=== PATIENT | male | born 1950 | race Caucasian/White ===

== ENCOUNTER → 2021-07-18 13:18 | Outpatient (CLI) | payer MEDICARE, OTHER, SELFPAY ==
--- NOTE | 2021-07-18 13:19 | DI.RAD.S_ITS ---
PROCEDURE: XR KUB INDICATIONS: Kidney Stones TECHNIQUE: One view of the abdomen acquired. COMPARISON: None. FINDINGS: Surgical changes and devices: None. Bowel: Bowel gas pattern is normal. Soft tissues: No suspicious abdominal calcifications. Visualized solid organ contours appear normal in size. Fiducial markers in the region the prostate gland. Bones: No suspicious bony lesions. Chronic L1 compression fracture. IMPRESSION: 1. No visible urinary calcifications. 2. Prostate gland fiducial markers. 3. Chronic L1 compression fracture. Dictated by: Ruma Mendez M.D. on 07/18/2021 at 15:31 Approved by: Ruma Mendez M.D. on 07/18/2021 at 15:53
== END ==
PROVIDERS: PCP Internal Medicine; Referring Provider Specialist; Visit Provider Specialist
DX: N20.0 Calculus of kidney (principal); M48.56XA Collapsed vertebra, not elsewhere classified, lumbar region, initial encounter for fracture
CPT/HCPCS: 74018

== ENCOUNTER → 2021-12-15 10:28 | Outpatient (CLI) | payer MEDICARE, OTHER, SELFPAY ==
[2021-12-15 10:53] LABS: COVID19 -Nasal RAPID Negative (Negative)
== END ==
PROVIDERS: PCP Internal Medicine; Visit Provider Specialist
DX: Z20.822 Contact with and (suspected) exposure to COVID-19 (principal)
CPT/HCPCS: 87635; C9803

== ENCOUNTER 2021-12-18 06:41 | Day surgery (SDC) | payer MEDICARE, OTHER, SELFPAY ==
[2021-12-13 13:10] VITALS: BMI 25.9
[2021-12-18] VITALS (7 sets, daily range): BP systolic 127–152; BP diastolic 52–76; PULSE 70–85; RESP 11–16; TEMP 36.2–36.6; O2SAT 97–100; BMI 25.9
[2021-12-18] MEDS: ACETAMINOPHEN IV 1,000 MG/100 ML VIAL 400 MG IV (07:27)
[2021-12-18] MEDS: LACTATED RINGERS 1,000 ML 42 ML IV ×2 (07:27→10:11)
[2021-12-18] MEDS: GABAPENTIN 300 MG CAPSULE PO (07:27)
[2021-12-18] MEDS: VANCOMYCIN 1,000 MG/200 ML PIGGYBACK 200 MG IV (07:28)
--- NOTE | 2021-12-18 07:38 | P.OP.PRE_ITS ---
Pre-operative Note COVID-19 Criteria for continued procedure: Increased loss of function, Deterioration of the patient's condition or overall health, Delay expected to result in less- positive ultimate med/surg outcome and Non-surgical alternatives not available or appropriate per current SOC Interval Note History & Physical reviewed/Exam performed by Physician: Yes Changes to H&P: No
[2021-12-18] MEDS: CEFAZOLIN 2 GM/20 ML SYRINGE IV (08:05)
--- NOTE | 2021-12-18 08:56 | SUR.OPER ---
Lithotomy on padded OR bed, head on pillow, arms secured on padded arm boards at <90 degrees abduction. Legs secured in padded yellow fins stirrups.
[2021-12-18] MEDS: GENTAMICIN 240 MG in SODIUM CHLORIDE 0.9% 100 ML 106 ML IV (09:00)
[2021-12-18] MEDS: BUPIVACAINE LIPOSOME 266 MG/20 ML VIAL INJ (09:42)
[2021-12-18] MEDS: VANCOMYCIN 1,000 MG VIAL 1000 MG TOP (09:43)
[2021-12-18] MEDS: BUPIVACAINE 0.5% W/ EPI (PF) 30 ML VIAL INJ (09:43)
[2021-12-18] MEDS: SODIUM CHLORIDE 0.9% 1,000 ML, GENTAMICIN 80 MG IRR (09:44)
--- NOTE | 2021-12-18 11:23 | PM.OP.1 ---
Operative Date/Time/Diagnoses Date of procedure: 12/18/21 Time of procedure: 11:23 Pre-op diagnosis: Stress urinary incontinence Post-op diagnosis: same Procedure & Clinicians Procedure: 1. Placement AMS 800 artificial urinary sphincter (5.0 cm cuff. 61-70 cm reservoir filled with 25 cc.). Same procedure as scheduled: Yes Indications: 1. Stress urinary incontinence Surgeon: John Alves Shoe Lacer: Kerry Chaney Click Yes if Unassisted: No Anesthesia Type: General and Local (1.33% Exparel diluted 50:50. 0.5% Marcaine with epinephrine.) Operative Notes Findings: Dense adhesions in radiation changes encountered at the lateral, right greater than left corpus spongiosum of the bulbar segment. Additionally, there were anterior and posterior to the bulbar urethra and pubic arch. Closure Type: primary Specimen(s): none sent Prosthetic devices, grafts, tissues, transplants, or devices: AMS artificial urinary sphincter, reservoir, and transfer pump. Applied: implant(s) (AMS 800 artificial urinary sphincter-5.0 cm, 61 cm to 70 cm spherical reservoir filled to 25 cc.) Estimated Blood Loss (mL): 10 Blood products transfused: none Procedure in detail: The patient was positioned supine and was administered general anesthesia. The lower abdomen, genitalia, groin, and perineum were then prepped and draped in sterile fashion. A 14 [place] Green catheter was inserted lower urinary tract, the balloon inflated 10 cc, and the contents were drain before clamping the female flange distally for intraoperative urethral localization and manipulation. A solution of 0.5% Marcaine with epinephrine was then instilled the midline perineum between the posterior scrotum and anal verge. The scrotum was elevated anteriorly and stable to the lower abdomen. A midline incision was made sharply to the level of the perineal fat. Blunt and cautery dissection were then used to divide the midline to the perineal body, which was also divided in the midline. A [place] retractor was utilized to assist in visualization and access. The corpus spongiosum was then encountered and carefully cleared of overlying muscular attachments anteriorly and laterally with the findings as described above. Further meticulous and painstaking dissection using cautery, sharp, and blunt technique were then utilized to create a window anterior to the bulbar corpus spongiosum. The window was then extended approximately 2 cm along surface of the spongiosum. The diameter of the segment was then measured and a size 5.0 cm cuff was requested. Next, the skin and subcutaneous tissue over the right lower quadrant at superior margin of the pubic symphysis was then infiltrated local anesthetic. Sharp incision was made and then the subcutaneous Yarelis's fascia was divided with blunt technique down to the level of the rectus fascia at its origin of the pubic symphysis. Muscular wall was then perforated with the tip of a blunt Metzenbaum scissors. Index finger was then insinuated in the space and area was swept free of attachments behind the right pubis in the pelvic extraperitoneal space. The reservoir was then prepared and primed. It was then positioned in the cyst aforementioned space. The fascia was reapproximated with 2-0 Vicryl. The reservoir was then filled with 25 cc of sterile saline. Next the cuff tubing was passed from the perineum to the right inguinal incision using a blunt-tip Passer. The perineal body was then close the midline using a running 2-0 Monocryl the subcutaneous fascial layer was reapproximated using the same suture and technique. Finally the skin was reapproximated with a running subcuticular 4-0 Monocryl. A small strip of Telfa was then tailored to fit over the incision, and a transparent Op site was then applied for a Bioclusive finish. Next, the pump was passed through the wide inguinal incision into the right anterior scrotal space just beneath the skin, and with the control button positioned anteriorly. Now the tubing marked black were connected using a standard right angle connector the usual fashion being sure to avoid introduction of air into the system. In the same manner, the clear/yellow tubing were connected to 1 another he using the same type of connector and technique. A pocket was then extended superiorly over the rectus fascia. The Yarelis's fascia was then reapproximated with running 2-0 Vicryl the subcutaneous layer was reapproximated a running horizontal 3-0 Vicryl. The skin was then reapproximated utilizing a running subcuticular 4-0 Monocryl. A small segment of Telfa was then trimmed appropriately to cover the incision, and a transparent Op site dressing was then applied over this to provide a transparent Bioclusive finish. The Green catheter was then removed. The patient was fitted with absorbent pad and an adult diaper he was then repositioned supine, was transferred to [facility], with then was transported to recovery in stable condition. Complications: none Post-operative Disposition: PACU Plan for aftercare: Discharge home.
[2021-12-18] MEDS: OXYCODONE IR 5 MG TABLET PO (11:34)
--- NOTE | 2021-12-18 11:49 | SUR.PHASEI ---
1144 late entry - awake and comfortable throughout pacu stay, talking, oriented. Tolerated PO intake well.
--- NOTE | 2021-12-18 12:34 | SUR.PHASEII ---
D/C instructions discussed with pt, pt voiced an understanding, pt dressed when ready to go, left unit in stable condition.
== END 2021-12-18 12:34 | disposition home or self-care (01) ==
PROVIDERS: PCP Internal Medicine; Referring Provider Specialist; Visit Provider Specialist
PROC: (CPT 53445; principal; 2021-12-18 07:45)
DX: N39.3 Stress incontinence (female) (male) (principal); Z85.46 Personal history of malignant neoplasm of prostate; I10 Essential (primary) hypertension; K21.9 Gastro-esophageal reflux disease without esophagitis
CPT/HCPCS: 53445; 87086; C1771; C9290; J0131; J0690; J1100; J1170; J2704; J3010

== ENCOUNTER 2021-12-19 01:02 | Emergency (ER) | payer MEDICARE, OTHER, SELFPAY ==
[2021-12-19 01:05] VITALS: BP 151/73; PULSE 98; RESP 18; TEMP 36.6; O2SAT 97; BMI 25.6
--- NOTE | 2021-12-19 01:56 | ED.MALEGU ---
HPI - Male Genitourinary General Chief complaint: Urogenital-Male Stated complaint: CANT URINATE Time Seen by Provider: 12/19/21 01:06 Source: patient Mode of arrival: Ambulatory History of Present Illness HPI Narrative: 71-year-old male former smoker with history of hyperlipidemia and stress incontinence presents with a chief complaint of inability to urinate over the evening. He had a urologic procedure earlier today in which an AMS 800 Urinary Control System was installed (synthetic urinary sphincter) by our urologist. Over the course of the evening his urinary stream slowed then became just dribble and now he is unable to go. He has increasing discomfort in the suprapubic region. He denies fever or chills. He denies nausea, vomiting or diarrhea. Related Data Home Medications Medication Instructions Recorded Confirmed atorvastatin 10 mg tablet (Lipitor) 10 mg PO DAILY 05/31/21 12/18/21 cholecalciferol (vitamin D3) 125 125 mcg PO DAILY 05/31/21 12/18/21 mcg (5,000 unit) capsule omeprazole 20 mg capsule,delayed 20 mg PO DAILY 05/31/21 12/18/21 release Previous Rx's Medication Instructions Recorded ciprofloxacin HCl 250 mg tablet 250 mg PO BID #20 tab 12/06/21 oxycodone 5 mg tablet 5 mg PO Q4H PRN #30 tab 12/06/21 tramadol 50 mg tablet 50 mg PO Q6H PRN #30 tab 12/19/21 Allergies Allergy/AdvReac Type Severity Reaction Status Date / Time Sulfa (Sulfonamide Allergy Unknown Verified 12/06/21 07:48 Antibiotics) Review of Systems Review of Systems Narrative: GENERAL: Denies chills, fatigue, malaise, fever, sweats. HEENT: Denies sinus pain, ear pain, sore throat, difficulty swallowing, dizziness. RESPIRATORY: Denies dyspnea, cough, wheezing, hemoptysis, sputum. CARDIOVASCULAR: Denies chest pain, palpitations, orthopnea, edema, GASTROINTESTINAL: Denies nausea, vomiting, abdominal pain, diarrhea, constipation, melena. : See HPI MUSCULOSKELETAL: denies weakness, joint pain, or bony pain SKIN: Denies rash, skin lesions, or other NEUROLOGIC: Denies weakness, headache, numbness, change in speech, confusion, seizures, incoordination. PSYCHIATRIC: No concerning psychosocial issues. 12 point review of systems is negative except for those stated above Patient History Medical History Angiomyolipoma of right kidney Cancer GERD (gastroesophageal reflux disease) History of malignant neoplasm of prostate Hypertension Melanoma Recurrent prostate cancer Rosacea LIV (stress urinary incontinence), male Urinary incontinence, mixed UTI (urinary tract infection) Surgical History History of cystoscopy History of hernia repair History of prostate biopsy History of prostatectomy (2013) Family History Father Prostate cancer Hyperlipidemia Social History marital status: number of children: 1 household members: spouse Smoking Status: Former smoker alcohol intake: never caffeine: Yes Smoking Status: Former smoker alcohol intake frequency: 0-2 drinks per day Substance Use Type: does not use Exam Narrative Exam Narrative: GENERAL: [71] year old patient appears stated age. Well-developed patient, in mild distress. HEAD: Atraumatic. Normocephalic. EYES: Pupils equal round and reactive. Extraocular motions intact. No scleral icterus. No injection or drainage. ENT: Nose without bleeding, purulent drainage. Throat without erythema, tonsillar hypertrophy or exudate. Airway patent. NECK: Trachea midline. Non tender CARDIOVASCULAR: Regular rate and rhythm without murmurs, gallops, or rubs. RESPIRATORY: Clear to auscultation. Breath sounds equal bilaterally. No wheezes, rales, or rhonchi. GASTROINTESTINAL: Abdomen soft, mild suprapubic tenderness, nondistended. EXTREMITIES: No edema or joint tenderness. BACK: Nontender without deformity or crepitance. No flank tenderness. NEURO: AOx3. SKIN: No rash or erythema of visible areas Initial Vital Signs Initial Vital Signs: Vital Signs Temperature 97.9 F 12/19/21 01:05 Pulse Rate 98 H 12/19/21 01:05 Respiratory Rate 18 12/19/21 01:05 Blood Pressure 151/73 H 12/19/21 01:05 Pulse Oximetry 97 12/19/21 01:05 Course Course Course Narrative: Bedside point of care ultrasound demonstrates full bladder. Call to on-call Urology to discuss next steps, he recommends attempt to deflate the cuff by depressing pump 2-3 times. This has been done on 2 cycles, patient tolerated well but was unable to generate a urine stream. Orders Ordered: Discontinued Medications Lidocaine HCl (Lidocaine 2% (Glydo) 6 Ml Gel) 6 ml TOP NOW ONE Stop: 12/19/21 02:50 Consultations Consultation #1: Dr. Alves called regarding patient's presentation. After discussion he elected to come see the patient and perform a bedside procedure. Please see his note for details of procedure as well as discharge instructions and follow-up instructions Vital Signs Vital signs: Vital Signs - 8 hr 12/19/21 01:05 Temperature 97.9 F Pulse Rate 98 H Respiratory Rate 18 Blood Pressure 151/73 H Pulse Oximetry 97 MDM - Male Genitourinary Lab Data Labs: Lab Results 12/19/21 Range/Units 03:35 Urine Color Yellow Urine Appearance Clear Urine pH 6.0 (4.5-8.0) Ur Specific [place] <=1.005 (1.000-1.035) Urine Protein Negative (Negative) Urine Glucose (UA) Negative (Negative) g/dL Urine Ketones Negative (NEGATIVE) Urine Occult Blood Trace-intact (Negative) Urine Nitrate Negative (Negative) Urine Bilirubin Negative (NEGATIVE) Urine Urobilinogen 0.2 (0.2) E.U./dL Ur Leukocyte Esterase Negative (NEGATIVE) Urine RBC 0-1/hpf (0-5/HPF) Urine WBC None seen (0-5/HPF) Ur Squamous Epith Cells 0-1 /hpf (0-5/HPF) Urine Bacteria None seen (None) Ur Culture Indicated? Cult not indicated Discharge Plan Departure Patient Disposition: Home Clinical Impression: Acute urinary retention Instructions: DI for Urinary Retention in Men Activity Restrictions/Additional Instructions: *You have been diagnosed with [urinary retention status post urological procedure *What to do: *Please continue to take your regular medications as directed. [ ] New medication prescriptions sent to your pharmacy: [ ] [ ] New medication written as a paper prescription [x ] No new medications given *Please follow up with your urologist per the instructions given to you by him *Return to Emergency Department if you should have any new, worsening or concerning symptoms, such as [fever greater than 101 F, shaking chills, worsening pain, persistent vomiting or other bothersome symptoms] Prescriptions: No Action tramadol 50 mg tablet 50 mg PO Q6H PRN (Reason: pain) Qty: 30 0RF Rx Instructions: Take 1 tablet with 1-2 Tylenol every 6 hours as needed for pain. ciprofloxacin HCl 250 mg tablet 250 mg PO BID Qty: 20 0RF oxycodone 5 mg tablet 5 mg PO Q4H PRN (Reason: pain) Qty: 30 0RF atorvastatin [Lipitor] 10 mg tablet 10 mg PO DAILY 0RF omeprazole 20 mg capsule,delayed release(DR/EC) 20 mg PO DAILY 0RF cholecalciferol (vitamin D3) 125 mcg (5,000 unit) capsule 125 mcg PO DAILY 0RF Referrals: Sugey Dewitt MD [Primary Care Provider] - John Alves MD [Physician] -
--- NOTE | 2021-12-19 03:00 | PC.NURSE ---
Urology here and in to evaluate pt, drainage tube placed in bladder and bladder was drained per urology of 1050 ml, pt tolerated procedure well,
[2021-12-19 03:53] LABS: Appearance Urine UA CLEAR; Bilirubin Urine UA NEGATIVE (NEGATIVE); Color Urine UA YELLOW; Glucose Urine UA NEGATIVE (Negative); Ketones Urine UA NEGATIVE (NEGATIVE); Leukocyte Esterase Urine UA NEGATIVE (NEGATIVE); Nitrite Urine UA NEGATIVE (Negative); Occult Blood Urine UA TRACE-INTACT (Negative); Protein Urine UA NEGATIVE (Negative); Specific Gravity Urine UA <=1.005 (1.000-1.035); Urobilinogen Urine UA 0.2 E.U./dL (0.2)
[2021-12-19 04:00] LABS: Bacteria Urine None Seen; Culture Indicated Urine Cult Not Indicated; RBC Urine 0-1/HPF (0-5/HPF); Squamous Epithelial Cell Urine 0-1 /HPF (0-5/HPF); WBC Urine None Seen (0-5/HPF)
--- NOTE | 2021-12-19 04:09 | PC.NURSE ---
pt unable to urinate after surgery yesterday, pt state he drank a lot of water to rehydrate when he got home woke around 0000 unable to urinate
--- NOTE | 2021-12-19 04:23 | P.CONS_ITS ---
History of Present Illness Consult details Date Patient Seen: 12/19/21 Time Patient Seen: 02:00 Chief complaint: CANT URINATE Reason for consult: Postoperative urinary retention Requesting provider: Samson Romero Narrative: The patient underwent uncomplicated placement of AMS 800 artificial urinary sphincter in the morning of 12/18/2021. The cuff was left partially open and the device deactivated at completion of the case. Patient reports that he went home, and because of dry mouth related to anesthesia he drink ?a lot a water? he was draining urine and pad as expected in the early postoperative. He did note later in the evening of 12/18/2021 that the rate seem to decreased somewhat. He is awakened at approximately midnight with strong urge to void but could not. He employed what he could in terms of measures to assist in voiding but found that the only way he could defect any urine per urethra was abdominal straining. He thought it best to present back to [facility] ED. I was contacted by Dr. Romero who had reviewed my operative report. He gladly activated the device and emptied the cuff but patient did not drain any appreciable urine. I was re-contacted and presented to the ED for evaluation and management of the situation. Meds Home Medications and Allergies Home Medications Medication Instructions Recorded Confirmed Type atorvastatin 10 mg tablet (Lipitor) 10 mg PO DAILY 05/31/21 12/18/21 History cholecalciferol (vitamin D3) 125 125 mcg PO DAILY 05/31/21 12/18/21 History mcg (5,000 unit) capsule omeprazole 20 mg capsule,delayed 20 mg PO DAILY 05/31/21 12/18/21 History release ciprofloxacin HCl 250 mg tablet 250 mg PO BID #20 tab 12/06/21 12/13/21 Rx oxycodone 5 mg tablet 5 mg PO Q4H PRN #30 tab 12/06/21 12/13/21 Rx Allergies Allergy/AdvReac Type Severity Reaction Status Date / Time Sulfa (Sulfonamide Allergy Unknown Verified 12/06/21 07:48 Antibiotics) Review of Systems Review of Systems ROS: Yes All systems reviewed with the patient and are negative except as otherwise documented Exam Vital Signs (past 8 hours): - 12/19/21 01:05 Temperature 97.9 F Pulse Rate 98 H Respiratory Rate 18 Blood Pressure 151/73 H Pulse Oximetry 97 Oxygen Delivery Method Room Air Narrative Exam Narrative: Well-developed and well-nourished male lying in ED [facility] in mild distress. Abdomen-normal active bowel tones. Mild tenderness suprapubically. Right inguinal dressing intact with small amount of cutaneous ecchymosis inferiorly. Genitalia-normal adult circumcised phallus. There is ecchymosis over the right hemiscrotum in the posterior midline scrotum. Perineal incision is intact. The dressing is removed. The recently placed AUS bulb is readily palpable. Objective Labs Labs: Laboratory Results - last 24 hr 12/19/21 03:35 Urine Color Yellow Urine Appearance Clear Urine pH 6.0 Ur Specific [place] <=1.005 Urine Protein Negative Urine Glucose (UA) Negative Urine Ketones Negative Urine Occult Blood Trace-intact Urine Nitrate Negative Urine Bilirubin Negative Urine Urobilinogen 0.2 Ur Leukocyte Esterase Negative Urine RBC 0-1/hpf Urine WBC None seen Ur Squamous Epith Cells 0-1 /hpf Urine Bacteria None seen Ur Culture Indicated? Cult not indicated PFS Medical History Angiomyolipoma of right kidney Cancer GERD (gastroesophageal reflux disease) History of malignant neoplasm of prostate Hypertension Melanoma Recurrent prostate cancer Rosacea LIV (stress urinary incontinence), male Urinary incontinence, mixed UTI (urinary tract infection) Surgical History History of cystoscopy History of hernia repair History of prostate biopsy History of prostatectomy (2013) Family History Father Prostate cancer Hyperlipidemia Social History marital status: number of children: 1 household members: spouse Tobacco & Substance Use Smoking Status: Former smoker alcohol intake: never Diet and Exercise caffeine: Yes Assessment & Plan Assessment & Plan narrative: Assessment: 1. 71-year-old white male less than 24 hours status post otherwise uncomplicated placement of AMS 800 artificial urinary sphincter on the morning of 12/18/2021. Uncertain of all underlying causes but include possibilities of over zealous patient hydration and resultant bladder overdistention and patient postoperative anxiety. Plan: 1. The device was cycled 3 times at the bedside and seemed operate properly. The lower abdomen genitalia were prepped and draped in sterile fashion. The cuff was deflated and xylocaine jelly was instilled in the urethral channel. An 8 Spanish feeding tube was then carefully advanced with the cuff deflated, into the bladder where upon clear light straw-colored urine began draining slowly fro m the small lumen catheter. Bladder emptying was facilitated with use of hand syringe withdrawal of a total of approximately 1000 cc. Patient had immediate relief. The device was then reactivated, cycled, and then deactivated at what I believe is a much smaller cuff volume. The patient is instructed to drink fluids only to thirst and if he has any residual dry mouth due to general anesthesia to suck on small amounts of ice chips or hard candy rather the consuming volumes of water. The urology clinic will be in contact with the patient later this day to update on his progress in status. Otherwise he has postoperative visit scheduled next week had discharge from PACU today. Time Spent With Patient Critical Care time: I spent a total of [] minutes of critical care time on this patient's care today; this time is exclusive of procedural time.
== END 2021-12-19 04:12 | disposition home or self-care (01) ==
PROVIDERS: Specialist; Emergency Provider Emergency Medicine; PCP Internal Medicine
DX: R33.9 Retention of urine, unspecified (principal); Z87.891 Personal history of nicotine dependence; Z98.890 Other specified postprocedural states
CPT/HCPCS: 81001; 99281; 99282

== ENCOUNTER 2021-12-20 19:09 | Emergency (ER) | payer MEDICARE, OTHER, SELFPAY ==
[2021-12-20 19:17] VITALS: BP 182/84; PULSE 84; RESP 18; TEMP 36.5; O2SAT 98; BMI 25.6
--- NOTE | 2021-12-20 19:27 | PC.NURSE ---
Pt reports issues with urinating after artificial urinary sphincter placed on saturday. Was in MD Alves office at 0830 today to empty bladder. Last able to urinate at 1700, but doesn't feel like he is emptying his bladder all the way and sometimes all that comes out is 5-6 drops. Reports 8-9/10 pain. Bladder scan documented.
--- NOTE | 2021-12-20 20:05 | ED_ITS ---
HPI - Male Genitourinary General Chief complaint: Urogenital-Male Stated complaint: states it is a surgical issue Time Seen by Provider: 12/20/21 19:31 Source: patient Mode of arrival: Ambulatory History of Present Illness HPI Narrative: 71-year-old male with history of urinary incontinence and recent urologic procedure for placement of synthetic urethral sphincter returns for evaluation and treatment of inability to urinate. This is his 2nd time in the emergency department and he had been in contact with his urologist earlier today. Over the course of the day he has had a slowing of his stream and can no longer produce urine, he is having suprapubic discomfort, he called his urologist and was sent to the emergency department for evaluation. He denies fever, chills nor nausea or vomiting. Related Data Home Medications Medication Instructions Recorded Confirmed atorvastatin 10 mg tablet (Lipitor) 10 mg PO DAILY 05/31/21 12/20/21 cholecalciferol (vitamin D3) 125 125 mcg PO DAILY 05/31/21 12/20/21 mcg (5,000 unit) capsule omeprazole 20 mg capsule,delayed 20 mg PO DAILY 05/31/21 12/20/21 release Previous Rx's Medication Instructions Recorded ciprofloxacin HCl 250 mg tablet 250 mg PO BID #20 tab 12/06/21 oxycodone 5 mg tablet 5 mg PO Q4H PRN #30 tab 12/06/21 tramadol 50 mg tablet 50 mg PO Q6H PRN #30 tab 12/19/21 Allergies Allergy/AdvReac Type Severity Reaction Status Date / Time Sulfa (Sulfonamide Allergy Unknown Verified 12/20/21 09:18 Antibiotics) Review of Systems Review of Systems Narrative: GENERAL: Denies chills, fatigue, malaise, fever, sweats. HEENT: Denies sinus pain, ear pain, sore throat, difficulty swallowing, dizziness. RESPIRATORY: Denies dyspnea, cough, wheezing, hemoptysis, sputum. CARDIOVASCULAR: Denies chest pain, palpitations, orthopnea, edema, GASTROINTESTINAL: Denies nausea, vomiting, abdominal pain, diarrhea, constipation, melena. : See HPI MUSCULOSKELETAL: denies weakness, joint pain, or bony pain SKIN: Denies rash, skin lesions, or other NEUROLOGIC: Denies weakness, headache, numbness, change in speech, confusion, seizures, incoordination. PSYCHIATRIC: No concerning psychosocial issues. 12 point review of systems is negative except for those stated above Patient History Medical History Angiomyolipoma of right kidney Cancer GERD (gastroesophageal reflux disease) History of malignant neoplasm of prostate Hypertension Melanoma Recurrent prostate cancer Rosacea LIV (stress urinary incontinence), male Urinary incontinence, mixed UTI (urinary tract infection) Surgical History History of cystoscopy History of hernia repair History of prostate biopsy History of prostatectomy (2013) Family History Father Prostate cancer Hyperlipidemia Social History marital status: number of children: 1 household members: spouse Smoking Status: Former smoker alcohol intake: never caffeine: Yes Smoking Status: Former smoker alcohol intake frequency: 0-2 drinks per day Substance Use Type: does not use Exam Initial Vital Signs Initial Vital Signs: Vital Signs Temperature 97.7 F 12/20/21 19:17 Pulse Rate 84 12/20/21 19:17 Respiratory Rate 18 12/20/21 19:17 Blood Pressure 182/84 H 12/20/21 19:17 Pulse Oximetry 98 12/20/21 19:17 Course Orders Ordered: ED Orders 12/20/21 20:00 BMP [Basic Metabolic Panel] Stat CBC Auto Diff [Complete Blood Count AUTO DIFF] Stat 12/20/21 21:35 Urine Microscopic Stat Discontinued Medications Hydromorphone HCl (Hydromorphone 0.5 Mg Inj) 0.5 mg IV NOW ONE Stop: 12/20/21 20:23 Last Admin: 12/20/21 20:28 Dose: 0.5 mg Documented by: DARREN Hydromorphone HCl (Hydromorphone 0.5 Mg Inj) 0.5 mg IV NOW ONE Stop: 12/20/21 21:09 Last Admin: 12/20/21 21:13 Dose: 0.5 mg Documented by: SHERINE Lidocaine/Epinephrine (Lidocaine 2% W/Epi Inj) 20 ml INJ INTRA-OP ONE Stop: 12/20/21 20:49 Last Admin: 12/20/21 20:54 Dose: 20 ml Documented by: SHERINE Ondansetron HCl (Ondansetron 4 Mg/2 Ml Inj) 4 mg IV NOW ONE Stop: 12/20/21 20:23 Last Admin: 12/20/21 20:28 Dose: 4 mg Documented by: DARREN Consultations Consultation #1: Dr. Alves called early in the case, bedside US notes large volume of urine in bladder. He will see patient at bedside to perform suprapubic catheter. Please see his note for details of the procedure, discharge instructions, and plans for follow up. Vital Signs Vital signs: Vital Signs - 8 hr 12/20/21 19:17 12/20/21 20:31 12/20/21 20:37 Temperature 97.7 F Pulse Rate 84 72 65 Respiratory Rate 18 Blood Pressure 182/84 H 134/60 Pulse Oximetry 98 98 98 12/20/21 21:00 12/20/21 21:30 12/20/21 22:00 Temperature Pulse Rate 72 70 69 Respiratory Rate Blood Pressure 172/79 H 162/74 H 130/65 Pulse Oximetry 99 97 98 MDM - Male Genitourinary Lab Data Result diagrams: 12/20/21 20:00 12/20/21 20:00 Labs: Lab Results 12/20/21 12/20/21 12/20/21 Range/Units 20:00 20:00 21:35 WBC 7.0 (4.5-11.0) X10^3/uL RBC 4.36 L (4.5-5.9) X10^6/uL Hgb 13.5 (13.5-17.5) g/dL Hct 39.7 L (41-53) % MCV 91.0 (80-100) fL MCH 31.0 (26-34) PG MCHC 34.1 (30-36) % RDW 13.2 (11.6-14.8) % Plt Count 126 L (150-400) X10^3/uL Neut % (Auto) 69.7 (50-75) % Lymph % (Auto) 18.1 L (25-40) % [place] % (Auto) 10.5 (3-14) % Eos % (Auto) 1.1 L (2-4) % Baso % (Auto) 0.6 (0-2) % Neut # (Auto) 4900 (0312-4987) /uL Lymph # (Auto) 1300 (3140-1338) /uL [place] # (Auto) 700 (0-900) /uL Eos # (Auto) 100 (0-450) /uL Baso # (Auto) 0 (0-100) /uL Sodium 136 L (137-145) mmol/L Potassium 4.1 (3.4-5.1) mmol/L Chloride 104 (98-107) mmol/L Carbon Dioxide 29 (22-32) mmol/L BUN 20 (9-20) mg/dL Creatinine 1.13 (0.66-1.25) mg/dL Estimated GFR > 60.0 (>60) mL/min BUN/Creatinine Ratio 17.7 (6-22) Glucose 112 H (80-110) mg/dL Calcium 9.5 (8.4-10.2) mg/dL Urine RBC 0-1/hpf (0-5/HPF) Urine WBC None seen (0-5/HPF) Ur Squamous Epith Cells None seen (0-5/HPF) Ur Transition Epith Cell Drainage Inspector Ur Renal Epithelial Cell Drainage Inspector Calcium Oxalate Crystal Drainage Inspector Uric Acid Crystals Drainage Inspector Triple Phos Crystals Drainage Inspector Other Crystals Drainage Inspector Amorphous Sediment Drainage Inspector Urine Bacteria None seen (None) Hyaline Casts Drainage Inspector Granular Casts Drainage Inspector RBC Casts Drainage Inspector WBC Casts Drainage Inspector Other Casts Drainage Inspector Urine Mucus Drainage Inspector Urine Trichomonas Drainage Inspector Urine Yeast Drainage Inspector Urine Sperm Drainage Inspector Ur Culture Indicated? Cult not indicated Micro UA Comment Drainage Inspector Urine Dip Bedside Urine Glucose Negative Bedside Urine Bilirubin - Negative Bedside Urine Ketone - Negative Urine Specific [place] 1.010 Bedside Urine Occult Blood +++ Bedside Urine pH 6.5 Bedside Urine Protein - Negative Bedside Urine Urobilinogen - Negative Bedside Urine Nitrite - Negative Bedside Urine Leukocytes - Negative Esterase Discharge Plan Departure Patient Disposition: Home Clinical Impression: Acute urinary retention Instructions: DI for Urinary Retention in Men Activity Restrictions/Additional Instructions: *You have been diagnosed with [ urinary retention with placement of suprapubic catheter by Dr. Alves] *Please follow up as previously planned with Dr. Alves, tomorrow morning at 830am *Please follow discharge instructions given per Dr. Alves *Return to Emergency Department if you should have any new, worsening or concerning symptoms, such as [fever greater than 101 F, shaking chills, worsening pain, persistent vomiting or other bothersome symptoms] Prescriptions: No Action tramadol 50 mg tablet 50 mg PO Q6H PRN (Reason: pain) Qty: 30 0RF Rx Instructions: Take 1 tablet with 1-2 Tylenol every 6 hours as needed for pain. ciprofloxacin HCl 250 mg tablet 250 mg PO BID Qty: 20 0RF oxycodone 5 mg tablet 5 mg PO Q4H PRN (Reason: pain) Qty: 30 0RF atorvastatin [Lipitor] 10 mg tablet 10 mg PO DAILY 0RF omeprazole 20 mg capsule,delayed release(DR/EC) 20 mg PO DAILY 0RF cholecalciferol (vitamin D3) 125 mcg (5,000 unit) capsule 125 mcg PO DAILY 0RF Referrals: Sugey Dewitt MD [Primary Care Provider] - John Alves MD [Physician] -
[2021-12-20 20:07] LABS: Add Manual Diff / Slide Review NO; Basophils Absolute Auto 0 /uL (0-100); Basophils Percent Auto 0.6 % (0-2); Eosinophils Absolute Auto 100 /uL (0-450); Eosinophils Percent Auto 1.1 % (2-4); Hematocrit 39.7 % (41-53); Hemoglobin 13.5 g/dL (13.5-17.5); Lymphocytes Absolute Auto 1300 /uL (1100-4500); Lymphocytes Percent Auto 18.1 % (25-40); Mean Corpuscular HGB Conc 34.1 % (30-36); Monocytes Absolute Auto 700 /uL (0-900); Monocytes Percent Auto 10.5 % (3-14); Neutrophils Absolute Auto 4900 /uL (1500-7000); Neutrophils Percent Auto 69.7 % (50-75); Platelet Count 126 X10^3/uL (150-400); Red Blood Cell Count 4.36 X10^6/uL (4.5-5.9); Red Cell Distribution Width 13.2 % (11.6-14.8)
[2021-12-20 20:23] LABS: BUN Creatinine Ratio 17.7 (6-22); Blood Urea Nitrogen 20 mg/dL (9-20); Calcium 9.5 mg/dL (8.4-10.2); Carbon Dioxide 29 mmol/L (22-32); Chloride 104 mmol/L (98-107); Estimated Glomerular Filt Rate > 60.0 mL/min (>60); Glucose 112 mg/dL (80-110); HEMOLYSIS < 15 (0-50); Potassium 4.1 mmol/L (3.4-5.1); Sodium 136 mmol/L (137-145)
[2021-12-20] MEDS: ONDANSETRON 4 MG/2 ML INJ IV (20:28)
[2021-12-20] MEDS: HYDROMORPHONE 0.5 MG INJ IV ×2 (20:28→21:13)
[2021-12-20 20:31] VITALS: PULSE 72; O2SAT 98
[2021-12-20 20:37] VITALS: BP 134/60; PULSE 65; O2SAT 98
[2021-12-20] MEDS: LIDOCAINE 2% W/EPI INJ 20 ML INJ (20:54)
[2021-12-20 21:00] VITALS: BP 172/79; PULSE 72; O2SAT 99
[2021-12-20 21:30] VITALS: BP 162/74; PULSE 70; O2SAT 97
--- NOTE | 2021-12-20 21:44 | PM.CN ---
History of Present Illness Consult details Date Patient Seen: 12/20/21 Time Patient Seen: 20:20 Chief complaint: states it is a surgical issue Reason for consult: Postoperative urinary retention Requesting provider: Samson Romero Narrative: Duane is a 71-year-old male presenting to [facility] ED tonight for recurrent postoperative urinary retention status post placement of AMS 800 artificial urinary sphincter 12/18/2021. He required transurethral drainage of retentive urinary volume in the compliance aide hours of 12/19/2021, for approximately 1000 cc residual. He again suffered difficulties with retention despite deactivation of the AUS urethral cuff earlier this day and was seen in the Urology Clinic where upon approximately a 600 cc urinary volume was drained, again via a urethral catheter with deactivation of the cuff. Clinical follow-up was conducted on 2 occasions throughout the day. He was draining urine per urethra until earlier this evening when he noted progressively decreased free drainage per urethra and then determined he was in retention. He again presented to the [facility] ED for evaluation. Ultrasound conducted by ED provider revealed a large residual volume and I was again contacted. He provides accurate roundish in of the above indications for repeat presentations with the [facility] ED. And interview he is obviously in distress. Meds Home Medications and Allergies Home Medications Medication Instructions Recorded Confirmed Type atorvastatin 10 mg tablet (Lipitor) 10 mg PO DAILY 05/31/21 12/20/21 History cholecalciferol (vitamin D3) 125 125 mcg PO DAILY 05/31/21 12/20/21 History mcg (5,000 unit) capsule omeprazole 20 mg capsule,delayed 20 mg PO DAILY 05/31/21 12/20/21 History release ciprofloxacin HCl 250 mg tablet 250 mg PO BID #20 tab 12/06/21 12/20/21 Rx oxycodone 5 mg tablet 5 mg PO Q4H PRN #30 tab 12/06/21 12/20/21 Rx tramadol 50 mg tablet 50 mg PO Q6H PRN #30 tab 12/19/21 12/20/21 Rx Allergies Allergy/AdvReac Type Severity Reaction Status Date / Time Sulfa (Sulfonamide Allergy Unknown Verified 12/20/21 09:18 Antibiotics) Review of Systems Review of Systems ROS: Yes All systems reviewed with the patient and are negative except as otherwise documented Exam Vital Signs (past 8 hours): - 12/20/21 19:17 12/20/21 20:31 12/20/21 20:37 Temperature 97.7 F Pulse Rate 84 72 65 Respiratory Rate 18 Blood Pressure 182/84 H 134/60 Pulse Oximetry 98 98 98 12/20/21 21:00 Temperature Pulse Rate 72 Respiratory Rate Blood Pressure 172/79 H Pulse Oximetry 99 Oxygen Delivery Method Room Air Narrative Exam Narrative: Patient is line in the ED gurney and in distress due to bladder distention pain. Lower abdomen is mildly distended and firm. On palpation he reports increased retentive pain. The lower abdomen was then prepped and draped in sterile fashion. A 22 [place] spinal needle was utilized with 10 cc syringe for localization aspiration of urine approximately 2-3 cm above the superior margin the pubic symphysis. A solution of 2% lidocaine with epinephrine was then used to infiltrate the skin and subcutaneous tissue at same site. Eleven blade scalpel was then used to make a skin incision was then advanced and rectus fascia was incised. A 12 [place] [employer] suprapubic percutaneous catheter kit was then utilized and the pigtail catheter with sharp tipped trocar and position was advanced into the bladder without difficulty. Trocar was removed and the catheter was connected to gravity drainage. The pigtail retention suture was then set at the hub. The catheter was then secured to the skin with 2 0 nylon suture. Two catheter secure were applied immediately superior and the left and lateral on the abdominal for catheter fixation. The patient was provided large drainage bag and also leg bag. The device again was cycled the of the scrotal bulb in deactivated at a minimal volume before repeat deactivation. Objective Labs Result Diagrams: 12/20/21 20:00 12/20/21 20:00 Labs: Laboratory Results - last 24 hr 12/20/21 12/20/21 20:00 20:00 WBC 7.0 RBC 4.36 L Hgb 13.5 Hct 39.7 L MCV 91.0 MCH 31.0 MCHC 34.1 RDW 13.2 Plt Count 126 L Neut % (Auto) 69.7 Lymph % (Auto) 18.1 L [place] % (Auto) 10.5 Eos % (Auto) 1.1 L Baso % (Auto) 0.6 Neut # (Auto) 4900 Lymph # (Auto) 1300 [place] # (Auto) 700 Eos # (Auto) 100 Baso # (Auto) 0 Sodium 136 L Potassium 4.1 Chloride 104 Carbon Dioxide 29 BUN 20 Creatinine 1.13 Estimated GFR > 60.0 BUN/Creatinine Ratio 17.7 Glucose 112 H Calcium 9.5 PFSH Medical History Angiomyolipoma of right kidney Cancer GERD (gastroesophageal reflux disease) History of malignant neoplasm of prostate Hypertension Melanoma Recurrent prostate cancer Rosacea LIV (stress urinary incontinence), male Urinary incontinence, mixed UTI (urinary tract infection) Surgical History History of cystoscopy History of hernia repair History of prostate biopsy History of prostatectomy (2013) Family History Father Prostate cancer Hyperlipidemia Social History marital status: number of children: 1 household members: spouse Tobacco & Substance Use Smoking Status: Former smoker alcohol intake: never Diet and Exercise caffeine: Yes Assessment & Plan Assessment and plan (1) Acute urinary retention: Status: Acute Plan 1. Discharge from the ED with large and leg reservoir backs. 2. Patient is instructed to keep previously scheduled appointment for 8:30 a.m. 12/21/2021 for reassessment and suprapubic catheter care and use instruction. 3. Plan for device activation in approximately 6 weeks has previously arranged and per routine. Time Spent With Patient Critical Care time: I spent a total of [] minutes of critical care time on this patient's care today; this time is exclusive of procedural time.
[2021-12-20 22:00] VITALS: BP 130/65; PULSE 69; O2SAT 98
[2021-12-20 22:10] LABS: Bacteria Urine None Seen; Culture Indicated Urine Cult Not Indicated; RBC Urine 0-1/HPF (0-5/HPF); Squamous Epithelial Cell Urine None Seen (0-5/HPF); WBC Urine None Seen (0-5/HPF)
== END 2021-12-20 22:32 | disposition home or self-care (01) ==
PROVIDERS: Emergency Provider Emergency Medicine; PCP Internal Medicine
DX: R33.9 Retention of urine, unspecified (principal); Z87.891 Personal history of nicotine dependence; Z98.890 Other specified postprocedural states; R33.8 Other retention of urine; N39.3 Stress incontinence (female) (male); Z85.46 Personal history of malignant neoplasm of prostate
CPT/HCPCS: 36415; 51701; 51798; 80048; 81003; 81015; 85025; 96374; 96375; 96376; 99215; 99284; J1170; J2405

== ENCOUNTER → 2021-12-28 10:14 | Outpatient (CLI) | payer MEDICARE, OTHER, SELFPAY ==
[2021-12-28 11:03] LABS: COVID19 -Nasal RAPID Negative (Negative)
== END ==
PROVIDERS: PCP Internal Medicine; Visit Provider Specialist
DX: Z20.822 Contact with and (suspected) exposure to COVID-19 (principal)
CPT/HCPCS: 87635

== ENCOUNTER 2021-12-29 06:28 | Day surgery (SDC) | payer MEDICARE, OTHER, SELFPAY ==
[2021-12-28 07:58] VITALS: BMI 25.9
[2021-12-29] VITALS (8 sets, daily range): BP systolic 116–142; BP diastolic 67–78; PULSE 70–79; RESP 10–18; TEMP 36.4–36.7; O2SAT 95–99; BMI 25.9
[2021-12-29] MEDS: ACETAMINOPHEN IV 1,000 MG/100 ML VIAL 400 MG IV (07:02)
[2021-12-29] MEDS: LACTATED RINGERS 1,000 ML 42 ML IV (07:23)
[2021-12-29] MEDS: VANCOMYCIN 1,000 MG/200 ML PIGGYBACK 200 MG IV (07:25)
--- NOTE | 2021-12-29 07:50 | P.OP.PRE_ITS ---
Pre-operative Note COVID-19 COVID-19 status: Negative Result date/Date tested (Pos, Neg/Pending): 12/28/21 Criteria for continued procedure: Possibility delay results in more complex future surgery or treatment, Increased loss of function, Deterioration of the patient's condition or overall health, Delay expected to result in less-positive ultimate med/surg outcome and Non-surgical alternatives not available or appropriate per current SOC Interval Note History & Physical reviewed/Exam performed by Physician: Yes Changes to H&P: Yes H&P completed within 30 days and has changed as indicated here:: The patient is status post uncomplicated placement of [employer] artificial urinary sphincter on 12/18/2021. Within 8-10 hours the patient experienced progressive decrease in urine output per urethra and ultimately was in urinary retention. He presented to the [facility] ED. At that time I had the impression that the pump had reactivated in the interval. See encounter. Se encounter in [facility] 12/19/2021. On 12/20/2021 he again presented to the [facility] Emergency Department. The device pump again had reactivated the patient was in urinary retention. Decision was made that time to place a percutaneous suprapubic tube to assure reliable urinary drainage. Again the device pump was deactivated. Again, the situation was reassessed after discussion with hand embroiderer representatives an colleagues of [employer], very experienced in the field urologic prosthetics. Additional maneuvers were conducted in the Urology Clinic to attempt an override of the valve within the pump. These measures proved unsuccessful as evidence by the device reactivating over the next 8-10 hours once again. Since then the device has been left activated and urine drainage has been per suprapubic tube. The patient now presents today for device revision. Specifically, removal and replacement of the scrotal pump component of the 3 components system.
[2021-12-29] MEDS: GENTAMICIN 160 MG in SODIUM CHLORIDE 0.9% 100 ML 104 ML IV (08:15)
--- NOTE | 2021-12-29 08:43 | SUR.OPER ---
Lithotomy on padded OR bed, head on pillow, arms secured on padded arm boards at <90 degrees abduction. Legs secured in padded yellow fins stirrups.
[2021-12-29] MEDS: BUPIVACAINE 0.5% (PF) 30 ML, EPINEPHrine 0.15 MG INJ (08:57)
[2021-12-29] MEDS: BUPIVACAINE LIPOSOME 266 MG/20 ML VIAL INJ (08:57)
[2021-12-29] MEDS: VANCOMYCIN 1,000 MG VIAL 1000 MG TOP (09:03)
[2021-12-29] MEDS: SODIUM CHLORIDE 0.9% IRR (09:19)
[2021-12-29] MEDS: GENTAMICIN 80 MG IRR (09:19)
[2021-12-29] MEDS: BACITRACIN OINT 0.9 GM PCKT 2 APPLIC TOP (09:34)
--- NOTE | 2021-12-29 10:04 | PM.OP.1 ---
Operative Date/Time/Diagnoses Date of procedure: 12/29/21 Time of procedure: 10:04 Pre-op diagnosis: 1. Nonfunctioning artificial urinary sphincter pump. Post-op diagnosis: same Procedure & Clinicians Procedure: 1. Removal nonfunctioning/defective artificial urinary sphincter scrotal pump. 2. Revision/replacement artificial urinary sphincter scrotal pump. Same procedure as scheduled: Yes Indications: 1. Nonfunctioning/defective artificial urinary sphincter pump. Surgeon: John Alves Click Yes if Unassisted: Yes Anesthesia Type: General Operative Notes Findings: 1. Normal right upper scrotal wall cutaneous and subcutaneous tissue planes. Closure Type: primary Specimen(s): other (Effective pump provided to sales representative cash registers.) Prosthetic devices, grafts, tissues, transplants, or devices: Artificial urinary sphincter scrotal pump. Estimated Blood Loss (mL): 0 Blood products transfused: none Procedure in detail: The patient was positioned in supine and was administered general anesthesia. He was then repositioned in semilithotomy, and the lower abdomen, genitalia, and groin were then prepped and draped in sterile fashion. A solution of 0.5% Marcaine with epinephrine and exposed with and used to infiltrate the skin and superficial subcutaneous tissue over the region of the right superior lateral scrotum. A longitudinal incision approximating the lines of Langerhans was then made sharply. The subcutaneous tissue was then divided using cautery and blunt technique. The efferent and afferent hydraulic tubes of the scrotal contents were then identified and isolated. The new scrotal pump was prepared. The existing, defective/nonfunctioning scrotal pump was then excised approximately 5 cm above the pump hub and was handed off the field. Hydraulic tubing of the new home was then trimmed to appropriate length. Straight barrel connectors were then attached to the existing tubing going to the reservoir and cuff. The hydraulic channels were then cleared of air in usual fashion. The crimping device was then used to connect each of the hydraulic lines in an end and fashion. The pump was then cycled 3 times. The bulb was then just partially filled and the device deactivated. The device was then observed for approximately 5 minutes there is no change in the depth of the dimple on the bulb. Scrotal pump was then reinserted into the previously existing scrotal space after copious irrigation with exclusion of vancomycin and gentamicin. The subcutaneous layer was then closed in 3 levels using running 2-0 Vicryl. The skin was then reapproximated using a running subcuticular 4-0 Monocryl. Operative field was cleaned and dried. A small amount antibiotic ointment was applied to the incision line. Dry sterile fluffs were then applied to the patient's scrotum and the patient was fitted with a athletic supporter. He was then repositioned in supine, awakened, and transferred to a [facility] for transport to PACU. Complications: none Post-operative Condition: stable Plan for aftercare: Discharge home.
== END 2021-12-29 10:30 | disposition home or self-care (01) ==
PROVIDERS: PCP Internal Medicine; Referring Provider Specialist; Visit Provider Specialist
PROC: (CPT 53447; principal; 2021-12-29 07:45)
DX: T83.018A Breakdown (mechanical) of other urinary catheter, initial encounter (principal); R33.8 Other retention of urine; N39.3 Stress incontinence (female) (male); Z85.46 Personal history of malignant neoplasm of prostate
CPT/HCPCS: 53447; C1771; C9290; J0131; J0171; J1100; J1885; J2250; J2405; J2704; J3010

== ENCOUNTER → 2022-04-25 09:27 | Outpatient (CLI) | payer MEDICARE, OTHER, SELFPAY ==
--- NOTE | 2022-04-25 09:28 | DI.US.S_ITS ---
PROCEDURE: US RENAL COMPLETE INDICATIONS: follow-up angiomyolipoma TECHNIQUE: Real-time scanning was performed of the kidneys and bladder, with image documentation. COMPARISON: Outside Facility, RG, CT ABDOMEN/PELVIS WITH CONTRAST, 06/20/2021, 13:24. FINDINGS: Kidneys: Kidneys are normal in size. Right kidney measures 10.9 cm long; left kidney measures 1.3 cm long. Right renal cortical thickness is 12.1 cm; left renal cortical thickness is 1.6 cm. Renal cortical echotexture is normal. No hydronephrosis or nephrolithiasis. Echogenic lesion measuring 1.1 x 1.7 x 1.1 cm is seen at the mid to lower pole of the right kidney, corresponding to the angiomyolipoma seen on prior CT from 06/20/2021. Parapelvic renal cysts are seen bilaterally measuring up to 2.3 cm on the right and 3.6 cm on the left. Bladder: Pre-void bladder volume is 341 mL. Post-void residual is 0 mL. Pre-void images demonstrate no intraluminal masses or stones. On pre-void images, bilateral ureteral jets are noted with color Doppler interrogation. (Of note, ureteral jets may not be detectable in up to 25% of cases due to insufficient differences in specific gravity between ureteral and bladder urine). Miscellaneous: No free pelvic fluid. IMPRESSION: 1. Right renal 1.7 cm echogenic lesion is consistent with the previously seen angiomyolipoma on CT from 06/20/2021, likely not significantly changed given differences in modality and measuring technique. 2. Bilateral parapelvic renal cysts. Dictated by: Joseph Pagan M.D. on 04/25/2022 at 13:00 Approved by: Joseph Pagan M.D. on 04/25/2022 at 13:05
== END ==
PROVIDERS: PCP Internal Medicine; Referring Provider Specialist; Visit Provider Specialist
DX: D17.71 Benign lipomatous neoplasm of kidney (principal); N28.1 Cyst of kidney, acquired
CPT/HCPCS: 76770

== ENCOUNTER → 2024-07-03 10:59 | Outpatient (CLI) | payer MEDICARE, OTHER, SELFPAY ==
[2024-07-03 13:37] LABS: Prostate Specific Antigen 1.41 ng/mL (0.10-4.00)
== END ==
PROVIDERS: PCP Internal Medicine; Referring Provider Urology; Visit Provider Urology
DX: D17.71 Benign lipomatous neoplasm of kidney (principal); R97.21 Rising PSA following treatment for malignant neoplasm of prostate; N39.46 Mixed incontinence; R39.9 Unspecified symptoms and signs involving the genitourinary system; Z85.46 Personal history of malignant neoplasm of prostate; Z96.0 Presence of urogenital implants; Z98.890 Other specified postprocedural states
CPT/HCPCS: 36415; 81002; 84153; 99214

== ENCOUNTER → 2024-07-07 12:00 | Outpatient (CLI) | payer MEDICARE, OTHER, SELFPAY ==
--- NOTE | 2024-07-07 12:02 | DI.US.S_ITS ---
PROCEDURE: US RENAL COMPLETE INDICATIONS: Renal angiomyolipoma TECHNIQUE: Real-time scanning was performed of the kidneys and bladder, with image documentation. COMPARISON: [facility], , US RENAL COMPLETE, 04/25/2022, 9:49. FINDINGS: Kidneys: Kidneys are normal in size. Right kidney measures 12.2 cm long; left kidney measures 12.4 cm long. Right renal cortical thickness is 1.9 cm; left renal cortical thickness is 1.7 cm. Renal cortical echotexture is normal. No hydronephrosis or nephrolithiasis. Focus of increased echogenicity within the right kidney measuring 2.2 x 1.31.4 cm increased from 1.7 x 1.1 x 1.1 cm. No stable simple right renal cyst as well as the mild interval decrease in size of simple left renal cyst currently measuring 2.9 cm compared to 3.6 cm. Bladder: Pre-void bladder volume is 346 mL. Post-void residual is 0 mL. Pre-void images demonstrate no intraluminal masses or stones. On pre-void images, bilateral ureteral jets are noted with color Doppler interrogation. (Of note, ureteral jets may not be detectable in up to 25% of cases due to insufficient differences in specific gravity between ureteral and bladder urine). Miscellaneous: No free pelvic fluid. IMPRESSION: Focus of increased echogenicity the felt to likely represent angiomyolipoma demonstrating mild interval increase in size. Dictated by: Juanita Regalado M.D. on 07/07/2024 at 14:00 Approved by: Juanita Regalado M.D. on 07/07/2024 at 14:02
== END ==
PROVIDERS: PCP Internal Medicine; Referring Provider Urology; Visit Provider Urology
DX: D17.71 Benign lipomatous neoplasm of kidney (principal); N28.1 Cyst of kidney, acquired
CPT/HCPCS: 76770

== ENCOUNTER → 2024-09-02 09:59 | Outpatient (CLI) | payer MEDICARE, OTHER, SELFPAY ==
[2024-09-02 11:27] LABS: Prostate Specific Antigen 1.48 ng/mL (0.10-4.00)
== END ==
PROVIDERS: PCP Internal Medicine; Referring Provider Urology; Visit Provider Urology
DX: C61 Malignant neoplasm of prostate (principal); Z85.46 Personal history of malignant neoplasm of prostate; R97.21 Rising PSA following treatment for malignant neoplasm of prostate
CPT/HCPCS: 36415; 84153

== ENCOUNTER → 2024-10-13 11:31 | Outpatient (CLI) | payer MEDICARE, OTHER, SELFPAY ==
--- NOTE | 2024-10-13 11:32 | DI.US.S_ITS ---
PROCEDURE: US ABD AORTA ANEURYSM SCREEN INDICATIONS: CARDIOVASCULAR DISORDERS TECHNIQUE: Real time scanning was performed of the aorta and iliac arteries, with image documentation. COMPARISON: [facility], RG, US RETROPERITONEAL, 05/26/2023, 9:40. Outside Facility, RG, CT ABDOMEN/PELVIS WITH CONTRAST, 06/20/2021, 13:24. FINDINGS: Aorta: The proximal aorta is not seen, secondary to overlying bowel gas. Mid-aorta measures 1.8 cm. Distal aortic diameter is 1.6 cm. Iliac arteries: Right common iliac artery measures 0.9 cm. Left common iliac artery measures 1 cm. IMPRESSION: Negative for aneurysm. Dictated by: Israel Fernandes M.D. on 10/13/2024 at 11:57 Approved by: Israel Fernandes M.D. on 10/13/2024 at 11:58
== END ==
PROVIDERS: PCP Student in an Organized Health Care Education/Training Program; Referring Provider Student in an Organized Health Care Education/Training Program; Visit Provider Student in an Organized Health Care Education/Training Program
DX: Z13.6 Encounter for screening for cardiovascular disorders (principal)
CPT/HCPCS: 76706

== ENCOUNTER → 2024-12-03 09:36 | Outpatient (CLI) | payer MEDICARE, OTHER, SELFPAY ==
[2024-12-03 12:01] LABS: Prostate Specific Antigen 1.42 ng/mL (0.10-4.00)
== END ==
LOC: LAB 09:39
PROVIDERS: PCP Student in an Organized Health Care Education/Training Program; Referring Provider Urology; Visit Provider Urology
DX: R97.21 Rising PSA following treatment for malignant neoplasm of prostate (principal)
CPT/HCPCS: 36415; 84153

== ENCOUNTER → 2025-03-18 13:07 | Outpatient (CLI) | payer MEDICARE, OTHER, SELFPAY ==
[2025-03-18 14:31] LABS: Prostate Specific Antigen 1.83 ng/mL (0.10-4.00)
== END ==
PROVIDERS: PCP Student in an Organized Health Care Education/Training Program; Referring Provider Urology; Visit Provider Urology
DX: C61 Malignant neoplasm of prostate (principal); R97.21 Rising PSA following treatment for malignant neoplasm of prostate
CPT/HCPCS: 36415; 84153